=== PATIENT | male | born 1990 | race Two or more races ===

== ENCOUNTER 2021-01-15 12:27 | Inpatient (IN) | payer OTHER ==
[~2021-01-15] VITALS: Ht 165.1 cm; Wt 72.7 kg
[2021-01-15] MEDS ORDERED: BUPRENORPHINE HCL/NALOXONE HCL 8-2 MG SUBLINGUAL TABLET SL ONE (13:45)
[2021-01-15] MEDS ORDERED: ONDANSETRON HCL 4 MG/2 ML VIAL IVP ONE (13:45)
[2021-01-15] MEDS ORDERED: LORazepam 2 MG/ML VIAL IVP ONE (13:45)
[2021-01-15] MEDS ORDERED: 0.9% SODIUM CHLORIDE 10 ML SYRINGE IVP PRN (14:00)
[2021-01-15] MEDS ORDERED: ONDANSETRON HCL 4 MG/2 ML VIAL IVP PRN (14:00)
[2021-01-15] MEDS ORDERED: ACETAMINOPHEN 325 MG TABLET PO PRN ×3 (14:00→21:30)
[2021-01-15 16:34] LABS: BASOPHILS % (AUTO) 0.3 % (0.0-2.0); EOSINOPHILS % (AUTO) 0.1 % (1.0-6.0); HEMATOCRIT 39.5 % (41-53); LYMPHOCYTES % (AUTO) 15.2 % (22.0-44.0); MEAN CORPUSCULAR HEMOGLOBIN 28.2 pg (26.0-34.0); MEAN CORPUSCULAR VOLUME 86 fL (80-100); MONOCYTES # (AUTO) 0.3 K/uL (0.1-1.0); MONOCYTES % (AUTO) 4.5 % (2.0-9.0); NEUTROPHILS # (AUTO) 5.3 K/uL (1.8-7.7); NEUTROPHILS % (AUTO) 79.9 % (40.0-70.0); PLATELET COUNT (AUTO) 265 K/uL (150-450); RED BLOOD CELL COUNT(AUTO) 4.62 MIL/uL (4.50-5.90); RED CELL DISTRIBUTION WIDTH 15.1 % (11.5-14.5)
[2021-01-15 16:46] LABS: ANION GAP 11 mmol/L (8-16); CALCIUM, TOTAL 9.3 mg/dL (8.8-10.5); CARBON DIOXIDE 23 mmol/L (22-29); CHLORIDE 105 mmol/L (98-107); CREATININE 0.91 mg/dL (0.60-1.30); GLOMERULAR FILTR. RATE CALC > 60 mL/min (>60); GLUCOSE,RANDOM 107 mg/dL (70-110); POTASSIUM 3.8 mmol/L (3.5-5.1); SODIUM SERUM 139 mmol/L (136-145); UREA NITROGEN, BLOOD 11 mg/dL (7-18)
[2021-01-15 16:51] LABS: ALANINE AMINOTRANSFERASE 47 U/L (12-78); ALBUMIN 3.9 g/dL (3.4-5.0); ALKALINE PHOSPHATASE 83 U/L (46-116); ASPARTATE AMINOTRANSFERASE 28 U/L (15-37); BILIRUBIN,TOTAL 0.8 mg/dL (0.1-1.0); TOTAL PROTEIN, SERUM 7.8 g/dL (6.4-8.2)
[2021-01-15 17:24] LABS: COVID AG,FIA SOURCE NASOPHARYNGEAL
[2021-01-15 18:57] VITALS: BP 126/68
[2021-01-15 19:34] VITALS: BP 123/66
[2021-01-15] MEDS ORDERED: ALBUTEROL SULFATE 2.5 MG/0.5 ML NEB SOLUTION NEB PRN (21:30)
[2021-01-15] MEDS ORDERED: IPRATROPIUM BROMIDE 0.5 MG/2.5 ML NEB SOLUTION NEB PRN (21:30)
[2021-01-15] MEDS ORDERED: DICYCLOMINE HCL 10 MG CAPSULE PO PRN (21:30)
[2021-01-15] MEDS ORDERED: HydrOXYzine PAMOATE 50 MG CAPSULE PO PRN (21:30)
[2021-01-15] MEDS ORDERED: PROMETHAZINE HCL 25 MG TABLET PO PRN (21:30)
[2021-01-15] MEDS ORDERED: BISACODYL 10 MG RECTAL RECTAL SUPPOSITORY PR PRN (21:30)
[2021-01-15] MEDS ORDERED: MAGNESIUM HYDROXIDE SUSPENSION 30 ML UDCUP PO PRN (21:30)
[2021-01-15] MEDS ORDERED: MORPHINE SULFATE 2 MG/ML SYRINGE IVP PRN (21:30)
[2021-01-15] MEDS ORDERED: MAG HYDROX/AL HYDROX/SIMETH ES 30 ML SUSPENSION UDCUP PO PRN (21:30)
[2021-01-15] MEDS: LORazepam 1 MG TABLET PO PRN (22:04)
[2021-01-15] MEDS: ZOLPIDEM TARTRATE 5 MG TABLET PO PRN (22:42)
[2021-01-15] MEDS: SODIUM CHLORIDE 0.45% 1,000 ML IV SCH (22:44)
[2021-01-16 07:24] VITALS: BP 121/78
[2021-01-16] MEDS: HEPARIN SODIUM,PORCINE 5,000 UNITS/ML VIAL SQ SCH ×4 (09:30→23:58)
[2021-01-16] MEDS: DOCUSATE SODIUM 100 MG CAPSULE PO SCH ×2 (09:30→21:00)
[2021-01-16] MEDS: SODIUM CHLORIDE 0.45% 1,000 ML IV SCH (12:35)
[2021-01-16 19:57] VITALS: BP 120/63
[2021-01-16] MEDS: TraZODone HCL 50 MG TABLET PO PRN (21:05)
[2021-01-17] MEDS: SODIUM CHLORIDE 0.45% 1,000 ML IV SCH ×2 (00:10→13:30)
[2021-01-17 04:40] VITALS: BP 155/73
[2021-01-17] MEDS: CloNIDine HCL 0.1 MG TABLET PO PRN (05:02)
[2021-01-17 08:00] VITALS: BP 117/69
[2021-01-17] MEDS: HYDROCODONE/ACETAMINOPHEN 5-325 MG TABLET PO PRN (09:14)
[2021-01-17] MEDS: HEPARIN SODIUM,PORCINE 5,000 UNITS/ML VIAL SQ SCH ×3 (09:14→23:34)
[2021-01-17] MEDS: DOCUSATE SODIUM 100 MG CAPSULE PO SCH ×2 (09:14→20:38)
[2021-01-17] MEDS: LOPERAMIDE HCL 2 MG/15 ML SUSPENSION UDCUP PO PRN (10:20)
[2021-01-17] MEDS: ONDANSETRON HCL 4 MG/2 ML VIAL IVP PRN ×2 (11:47→11:54)
[2021-01-17] MEDS: IBUPROFEN 600 MG TABLET PO PRN (16:46)
[2021-01-17 20:15] VITALS: BP 139/70
[2021-01-17] MEDS: ZOLPIDEM TARTRATE 5 MG TABLET PO PRN (20:38)
[2021-01-17] MEDS: TraZODone HCL 50 MG TABLET PO PRN (20:38)
[2021-01-18] MEDS: SODIUM CHLORIDE 0.45% 1,000 ML IV SCH ×2 (02:50→16:10)
[2021-01-18 04:20] VITALS: BP 136/74
[2021-01-18 07:28] VITALS: BP 125/59
[2021-01-18] MEDS: CloNIDine HCL 0.1 MG TABLET PO PRN (10:15)
[2021-01-18] MEDS: DOCUSATE SODIUM 100 MG CAPSULE PO SCH ×2 (10:15→21:00)
[2021-01-18] MEDS: HEPARIN SODIUM,PORCINE 5,000 UNITS/ML VIAL SQ SCH ×2 (10:17→16:56)
[2021-01-18] MEDS: IBUPROFEN 600 MG TABLET PO PRN ×2 (10:23→16:56)
[2021-01-18] MEDS: BACLOFEN 10 MG TABLET PO PRN ×2 (10:23→16:57)
[2021-01-18] MEDS: LOPERAMIDE HCL 2 MG/15 ML SUSPENSION UDCUP PO PRN (16:58)
[2021-01-18 20:05] VITALS: BP 122/58
[2021-01-18] MEDS: TraZODone HCL 50 MG TABLET PO PRN (20:07)
[2021-01-18] MEDS: LORazepam 1 MG TABLET PO PRN (20:09)
[2021-01-19 04:00] VITALS: BP 106/56
[2021-01-19] MEDS: HEPARIN SODIUM,PORCINE 5,000 UNITS/ML VIAL SQ SCH ×3 (04:14→16:00)
[2021-01-19] MEDS: CloNIDine HCL 0.1 MG TABLET PO PRN (04:14)
[2021-01-19] MEDS: SODIUM CHLORIDE 0.45% 1,000 ML IV SCH (05:30)
[2021-01-19] MEDS: DOCUSATE SODIUM 100 MG CAPSULE PO SCH ×2 (09:54→21:00)
[2021-01-19] MEDS: HYDROCODONE/ACETAMINOPHEN 5-325 MG TABLET PO PRN (17:10)
[2021-01-19 17:17] VITALS: BP 122/57
[2021-01-19 19:50] VITALS: BP 119/63
[2021-01-19] MEDS ORDERED: DiphenhydrAMINE HCL 50 MG/ML VIAL IVP PRN (20:30)
[2021-01-19] MEDS ORDERED: DiphenhydrAMINE HCL 50 MG/ML VIAL IM PRN (22:00)
[2021-01-20 00:20] VITALS: BP 124/83
[2021-01-20] MEDS: TraZODone HCL 50 MG TABLET PO PRN (01:13)
[2021-01-20 04:15] VITALS: BP 126/78
[2021-01-20] MEDS ORDERED: DiphenhydrAMINE HCL 50 MG/ML VIAL IM PRN (04:30)
[2021-01-20 07:02] LABS: BASOPHILS % (AUTO) 0.5 % (0.0-2.0); EOSINOPHILS % (AUTO) 0.3 % (1.0-6.0); HEMATOCRIT 42.5 % (41-53); HEMOGLOBIN 14.1 g/dL (13.5-17.5); LYMPHOCYTES # (AUTO) 2.7 K/uL (1.0-4.8); LYMPHOCYTES % (AUTO) 25.4 % (22.0-44.0); MEAN CORPUSCULAR HEMOGLOBIN 28.6 pg (26.0-34.0); MEAN CORPUSCULAR HGB CONC 33.1 G/dL (31.0-37.0); MEAN CORPUSCULAR VOLUME 86 fL (80-100); MONOCYTES # (AUTO) 0.9 K/uL (0.1-1.0); MONOCYTES % (AUTO) 8.5 % (2.0-9.0); NEUTROPHILS # (AUTO) 6.9 K/uL (1.8-7.7); NEUTROPHILS % (AUTO) 65.3 % (40.0-70.0); PLATELET COUNT (AUTO) 275 K/uL (150-450); RED BLOOD CELL COUNT(AUTO) 4.93 MIL/uL (4.50-5.90); RED CELL DISTRIBUTION WIDTH 15.4 % (11.5-14.5)
[2021-01-20 07:20] LABS: ALANINE AMINOTRANSFERASE 62 U/L (12-78); ALBUMIN 3.5 g/dL (3.4-5.0); ALKALINE PHOSPHATASE 74 U/L (46-116); ANION GAP 12 mmol/L (8-16); ASPARTATE AMINOTRANSFERASE 33 U/L (15-37); BILIRUBIN,TOTAL 0.7 mg/dL (0.1-1.0); CALCIUM, TOTAL 8.9 mg/dL (8.8-10.5); CARBON DIOXIDE 23 mmol/L (22-29); CHLORIDE 107 mmol/L (98-107); CREATININE 0.95 mg/dL (0.60-1.30); GLOMERULAR FILTR. RATE CALC > 60 mL/min (>60); GLUCOSE,RANDOM 89 mg/dL (70-110); POTASSIUM 3.8 mmol/L (3.5-5.1); SODIUM SERUM 142 mmol/L (136-145); TOTAL PROTEIN, SERUM 7.1 g/dL (6.4-8.2); UREA NITROGEN, BLOOD 15 mg/dL (7-18)
[2021-01-20 08:23] VITALS: BP 127/77
[2021-01-20] MEDS: HEPARIN SODIUM,PORCINE 5,000 UNITS/ML VIAL SQ SCH ×2 (08:32)
[2021-01-20] MEDS: DOCUSATE SODIUM 100 MG CAPSULE PO SCH (08:32)
== END 2021-01-20 14:25 | DRG 897 ==
LOC: EMS 12:27 → 6N 18:14 → 6S 19:19
PROVIDERS: ADMIT Hospitalist; ATTEND Hospitalist
DX: F11.23 Opioid dependence with withdrawal (principal); Z20.822 Contact with and (suspected) exposure to COVID-19; F15.10 Other stimulant abuse, uncomplicated; F10.10 Alcohol abuse, uncomplicated; F17.210 Nicotine dependence, cigarettes, uncomplicated; Y90.0 Blood alcohol level of less than 20 mg/100 ml
CPT/HCPCS: 87426; 99285; G0480; J1200; J1644; J2405